=== PATIENT | male | born 1955 | race Caucasian/White ===

== ENCOUNTER 2016-09-28 07:21 | Emergency (ER) | payer OTHER | END 2016-09-28 09:21 | disposition home or self-care (01) | LOC: ER 07:21 | DX: N20.0 Calculus of kidney (principal); E11.9 Type 2 diabetes mellitus without complications; Z79.84 Long term (current) use of oral hypoglycemic drugs; Z88.5 Allergy status to narcotic agent | CPT/HCPCS: 36415; 96361; 96374; 96375; J1885 ==

== ENCOUNTER 2016-10-03 21:38 | Emergency (ER) | payer OTHER | END 2016-10-04 01:07 | disposition home or self-care (01) | LOC: ER 21:38 | DX: N17.9 Acute kidney failure, unspecified (principal); N20.1 Calculus of ureter; E11.9 Type 2 diabetes mellitus without complications; Z79.82 Long term (current) use of aspirin; Z79.84 Long term (current) use of oral hypoglycemic drugs; Z88.5 Allergy status to narcotic agent; Z87.442 Personal history of urinary calculi | CPT/HCPCS: 36415; 96374; 96375; J1885 ==